=== PATIENT | male | born 1995 | race Caucasian/White ===

== ENCOUNTER 2018-06-19 14:55 | Emergency (ER) | payer BC, OTHER ==
[~2018-06-19] VITALS: Ht 182.9 cm; Wt 81.7 kg
[2018-06-19] MEDS ORDERED: OMNIPOD DASH P1 EACH MISCELL (16:23)
[2018-06-19 17:12] VITALS: BP 142/73
== END 2018-06-19 16:45 | disposition home or self-care (01) ==
LOC: ER 14:55
DX: T78.40XA Allergy, unspecified, initial encounter (principal); X58.XXXA Exposure to other specified factors, initial encounter